=== PATIENT | male | born 1950 | race Caucasian/White ===

== ENCOUNTER 2017-09-01 11:09 | Emergency (ER) | payer OTHER ==
--- NOTE | 2017-09-01 11:47 | EDPHY ---
HPI/HX/ROS/PE/MDM Narrative: CHIEF COMPLAINT: Nausea, vomiting. HPI: This patient is a 66 y/o male with recent diagnosis of UTI complaining of nausea and malaise. The patient has undergone several recent surgeries including colectomy, hernia repair, and most recently, TURP on 08/16/17. He was evaluated by his urologist, Dr. Moya one week ago and diagnosed with UTI. He has been taking Bactrim for seven days, but has felt worse since beginning antibiotics. Initially, he had diarrhea. He has not eaten in three days due to lack of appetite and nausea. He has had hot and cold sweats but no measured fever. He had pain in his abdominal region earlier in the week, but this has resolved. Today, he continues to feel nauseous and began vomiting. He was evaluated briefly by urology providers today and referred to the ED due to worsening symptoms and mild tachycardia. No chest pain, shortness of breath, or other associated symptoms. REVIEW OF SYSTEMS: Aside from elements discussed in the HPI, a comprehensive 10-point review of systems was reviewed and is negative. PMH: BPH. Colectomy. Inguinal hernia repair. TURP. Cholecystectomy. SOCIAL HISTORY: . at bedside. Lives in [place]. Retired. PHYSICAL EXAM: General:Patient is alert, in no acute distress. ENT:Eyes are normal to inspection. ENT inspection normal. Neck: Normal inspection. Full range of motion. Respiratory:No respiratory distress. Breath sounds normal bilaterally. Cardiovascular: Mild tachycardia. Strong peripheral pulses. Normal cap refill. Abdomen:The abdomen is nontender to palpation. There are no peritoneal signs. There are normal bowel sounds. Back: Normal to inspection. No tenderness to palpation. Skin: Normal color. No rash. Warm and dry. Extremities: Normal appearance. Full range of motion. Neuro: Oriented x3. Normal motor function. Normal sensory function. ED Course: 66 y/o male presents with nausea and vomiting and malaise. Plan for chest x-ray , labs including CBC, chemistries, UA, lactic acid, blood cultures. Chest x-ray negative for pneumonia. 14:25 Reviewed laboratory studies. UA positive for UTI. Lactic acid negative. Past medical records reviewed. 08/25/17 the patient had urine cultures positive for Klebsiella, sensitive to Bactrim and Levaquin. He has been on Bactrim, but symptoms have worsened despite this. As the patient is not responding to Bactrim , plan to administer 1gm IV Rocephin. Plan to discharge home in good condition with prescription for Levaquin. He will continue to follow up with Dr. Moya, urologist, and his primary care provider. Return precautions discussed. He is comfortable with this plan. MDM: This patient presents with malaise in setting of recent treatment for UTI following urologic procedure. UA still appears quite positive despite treatment with Bactrim, which paperwork shows organism should be susceptible to. The initial concern was for sepsis, but patient has a normal lactate, normal vitals, and appears well. I will treat him with a dose of IV ceftriaxone and discharge on PO levaquin, which culture also indicates should be an acceptable option. I offered patient admission to the hospital for further treatment and observation, but he would prefer to go home. Urine Cx sent. - Data Points Imaging Results: Imaging Impressions Chest X-Ray 09/01/17 11:44 Impression: No pneumonia. Imaging: I viewed and interpreted images myself Laboratory Results: Laboratory Results 09/01/17 12:29 09/01/17 12:29 09/01/17 09/01/17 09/01/17 13:30 12:29 12:29 WBC 8.02 10^3/uL 10^3/uL (3.80-9.50) RBC 4.87 10^6/uL 10^6/uL (4.40-6.38) Hgb 14.7 g/dL g/dL (13.7-17.5) Hct 42.8 % % (40.0-51.0) MCV 87.9 fL fL (81.5-99.8) MCH 30.2 pg pg (27.9-34.1) MCHC 34.3 g/dL g/dL (32.4-36.7) RDW 12.8 % % (11.5-15.2) Plt Count 207 10^3/uL 10^3/uL (150-400) MPV 9.3 fL fL (8.7-11.7) Neut % (Auto) 86.4 % H % (39.3-74.2) Lymph % (Auto) 5.9 % L % (15.0-45.0) [place] % (Auto) 5.9 % % (4.5-13.0) Eos % (Auto) 0.4 % L % (0.6-7.6) Baso % (Auto) 0.5 % % (0.3-1.7) Nucleat RBC Rel Count 0.0 % % (0.0-0.2) Absolute Neuts (auto) 6.94 10^3/uL H 10^3/uL (1.70-6.50) Absolute Lymphs (auto) 0.47 10^3/uL L 10^3/uL (1.00-3.00) Absolute Monos (auto) 0.47 10^3/uL 10^3/uL (0.30-0.80) Absolute Eos (auto) 0.03 10^3/uL 10^3/uL (0.03-0.40) Absolute Basos (auto) 0.04 10^3/uL 10^3/uL (0.02-0.10) Absolute Nucleated RBC 0.00 10^3/uL 10^3/uL (0-0.01) Immature Gran % 0.9 % % (0.0-1.1) Immature Gran # 0.07 10^3/uL 10^3/uL (0.00-0.10) VBG Lactic Acid Sodium 135 mEq/L mEq/L (135-145) Potassium 4.4 mEq/L mEq/L (3.5-5.2) Chloride 96 mEq/L L mEq/L (97-110) Carbon Dioxide 24 mEq/l mEq/l (22-31) Anion Gap 15 mEq/L mEq/L (8-16) BUN 16 mg/dL mg/dL (7-23) Creatinine 1.2 mg/dL mg/dL (0.7-1.3) Estimated GFR > 60 Glucose 120 mg/dL H mg/dL (70-100) Calcium 9.1 mg/dL mg/dL (8.5-10.4) Urine Color MAIKEL Urine Appearance HAZY Urine pH 5.0 (5.0-7.5) Ur Specific [place] 1.026 (1.002-1.030) Urine Protein 2+ H (NEGATIVE) Urine Ketones TRACE H (NEGATIVE) Urine Blood 3+ H (NEGATIVE) Urine Nitrate NEGATIVE (NEGATIVE) Urine Bilirubin POSITIVE H (NEGATIVE) Urine Urobilinogen 4.0 EU H EU (0.2-1.0) Ur Leukocyte Esterase 2+ H (NEGATIVE) Urine RBC 15-25 /hpf H /hpf (0-3) Urine WBC 50-182 /hpf H /hpf (0-3) Ur Epithelial Cells TRACE /lpf /lpf (NONE-1+) Urine Bacteria TRACE /hpf H /hpf (NONE SEEN) Hyaline Casts 1-5 /lpf /lpf (0-1) Granular Casts 1-5 /lpf /lpf (0-1) Urine Mucus 4+ /lpf H /lpf (NONE-1+) Urine Glucose NEGATIVE (NEGATIVE) 09/01/17 12:29 WBC RBC Hgb Hct MCV MCH MCHC RDW Plt Count MPV Neut % (Auto) Lymph % (Auto) [place] % (Auto) Eos % (Auto) Baso % (Auto) Nucleat RBC Rel Count Absolute Neuts (auto) Absolute Lymphs (auto) Absolute Monos (auto) Absolute Eos (auto) Absolute Basos (auto) Absolute Nucleated RBC Immature Gran % Immature Gran # VBG Lactic Acid 1.4 mmol/L mmol/L (0.7-2.1) Sodium Potassium Chloride Carbon Dioxide Anion Gap BUN Creatinine Estimated GFR Glucose Calcium Urine Color Urine Appearance Urine pH Ur Specific [place] Urine Protein Urine Ketones Urine Blood Urine Nitrate Urine Bilirubin Urine Urobilinogen Ur Leukocyte Esterase Urine RBC Urine WBC Ur Epithelial Cells Urine Bacteria Hyaline Casts Granular Casts Urine Mucus Urine Glucose Medications Given: Discontinued Medications Sodium Chloride (Ns) 1,000 mls @ 0 mls/hr IV ONCE ONE PRN Reason: Wide Open Stop: 09/01/17 14:18 Last Admin: 09/01/17 14:30 Dose: 1,000 mls Ceftriaxone Sodium/Dextrose (Rocephin 1 Gm (Premix)) 50 mls @ 100 mls/hr IV EDNOW ONE PRN Reason: Protocol Stop: 09/01/17 14:53 Last Admin: 09/01/17 14:30 Dose: 50 mls General Time Seen by Provider: 09/01/17 11:43 Initial Vital Signs: Initial Vital Signs Temperature (C) 36.3 C 09/01/17 11:11 Heart Rate 105 H 09/01/17 11:11 Respiratory Rate 20 09/01/17 11:11 Blood Pressure 110/72 09/01/17 11:11 O2 Sat (%) 96 09/01/17 11:11 O2 Delivery Mode Room Air Allergies/Adverse Reactions: No Known Allergies Allergy (Unverified 09/01/17 11:11) Home Medications: Medication Instructions Recorded Bactrim DS 09/01/17 Flomax 09/01/17 levOFLOXACIN [levAQUIN (*)] 750 mg PO DAILY #6 tab 09/01/17 Departure - Departure Disposition: Home, Routine, Self-Care Clinical Impression: Urinary tract infection Condition: Good Instructions: Urinary Tract Infection in Men (ED) Additional Instructions: 1. Take Levaquin as prescribed. 2. Follow-up with your primary doctor within 72 hours. Continue to follow up with your urologist as scheduled. 3. Return to the Emergency Department for fever, worsening pain, flank pain or failure to improve within 72 hours. Referrals: John Moya MD [Medical Doctor] - As per Instructions Prescriptions: levOFLOXACIN [levAQUIN (*)] 750 mg PO DAILY #6 tab Report Scribed for: Buster Osorio Report Scribed by: Lyly Levin Date of Report: 09/01/17 Time of Report: 11:47 Physician Review and Approval Statement: Portions of this note were transcribed by an ED scribe. I personally performed the history, physical exam, and medical decision making; and confirm the accuracy of the information in the transcribed note.
[2017-09-01 12:39] LABS: PLATELET COUNT 207 10^3/uL (150-400)
[2017-09-01] MEDS ORDERED: NS 1,000 ML IV ONE (14:17)
[2017-09-01 15:00] VITALS: BP 120/63
== END 2017-09-01 15:02 | disposition home or self-care (01) ==
DX: N39.0 Urinary tract infection, site not specified (principal); B96.89 Other specified bacterial agents as the cause of diseases classified elsewhere
CPT/HCPCS: 71046; 96374; 99284; J0696